=== PATIENT | female | born 2000 | race American Indian/Alaskan Native ===

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

== ENCOUNTER 2019-03-09 04:42 | Inpatient (IN) | payer MEDICAID ==
[2019-03-09] MEDS ORDERED: Sodium Chloride 0.9% 10 ML Syringe FLUSH PRN (04:45)
[2019-03-09] MEDS ORDERED: Sodium Chloride 0.9% 1,000 ML IV ONE (05:10)
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
[2019-03-09 05:20] LABS: ACETAMINOPHEN 230.2 ug/mL; ANION GAP 17.6; CHLORIDE,CL 109 mmol/L (101-111); SODIUM,NA 142 mmol/L (135-145)
[2019-03-09] MEDS ORDERED: Ondansetron 4 MG/2 ML SDV IVPUSH PRN (09:04)
[2019-03-09] MEDS ORDERED: Sodium Chloride 0.9% 1,000 ML IV SCH (09:15)
[2019-03-09] MEDS ORDERED: DEXTROSE 5% IV ONE ×6 (10:00→15:00)
[2019-03-09] MEDS ORDERED: WATER IV ONE ×6 (10:00→15:00)
[2019-03-09] MEDS ORDERED: ACETYLCYSTEINE IV ONE ×6 (10:00→15:00)
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
[2019-03-09] MEDS ORDERED: Metoclopramide 10 MG/2 ML SDV IVPUSH PRN (10:38)
[2019-03-09] MEDS ORDERED: Acetylcysteine 30 ML ONE (10:38)
[2019-03-09] MEDS: Nicotine 21 MG/24 Hr Patch TRDERM SCH (17:04)
[2019-03-09] MEDS: Heparin Sodium 5,000 Units/ML Vial SUBCUT SCH ×2 (17:06→21:55)
[2019-03-09 17:07] LABS: ACETAMINOPHEN 31.1 ug/mL
[2019-03-10] MEDS: Heparin Sodium 5,000 Units/ML Vial SUBCUT SCH ×2 (05:44→13:24)
[2019-03-10 06:53] LABS: ANION GAP 11.3; CHLORIDE,CL 106 mmol/L (101-111); SODIUM,NA 137 mmol/L (135-145)
[2019-03-10] MEDS ORDERED: Potassium Chloride 10 MEQ Tab.ER PO ONE (09:09)
[2019-03-10] MEDS: Nicotine 21 MG/24 Hr Patch TRDERM SCH (09:19)
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
[2019-03-10 15:35] VITALS: BP 134/91; PULSE 100
== END 2019-03-10 16:26 | disposition home or self-care (01) | DRG 917 ==
LOC: DL.ED 04:42 → UNDOADMIN 08:38 → DL.MS 08:38
PROVIDERS: ADMIT Hospitalist; ATTEND Hospitalist
DX: T39.1X4A Poisoning by 4-Aminophenol derivatives, undetermined, initial encounter (principal); F10.10 Alcohol abuse, uncomplicated; F19.10 Other psychoactive substance abuse, uncomplicated; Y90.9 Presence of alcohol in blood, level not specified; T39.1X1A Poisoning by 4-Aminophenol derivatives, accidental (unintentional), initial encounter; G92 Toxic encephalopathy; E87.2 Acidosis; F10.229 Alcohol dependence with intoxication, unspecified; F15.10 Other stimulant abuse, uncomplicated; F12.10 Cannabis abuse, uncomplicated; R74.8 Abnormal levels of other serum enzymes; Y90.6 Blood alcohol level of 120-199 mg/100 ml
CPT/HCPCS: 36415; 80053; 80320 ×2; 80329 ×3; 83605; 84703; 85025; 93005; J7030; 80048; 80076; 80305-QW; 85027; 85610; 96360; 99285-25; A9270-GY; G0480; J0132; J1644; J2405; J2765; J7060

== ENCOUNTER 2019-07-08 02:41 | Emergency (ER) | payer SELFPAY ==
[2019-07-08 03:21] VITALS: BP 120/56; PULSE 109
[2019-07-08] MEDS ORDERED: cefTRIAXone 250 MG Vial IM ONE (03:29)
[2019-07-08] MEDS ORDERED: Azithromycin 250 MG Tab PO ONE (03:30)
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
[2019-07-08] MEDS ORDERED: Lidocaine 1% 30 ML SDV INJECT ONE (03:42)
[2019-07-08 04:35] LABS: ANION GAP 14.6 mEq/L (7-13); CHLORIDE,CL 110 mmol/L (98-107); SODIUM,NA 148 mmol/L (136-145)
[2019-07-09 13:47] LABS: C.TRACHOMATIS BY TMA Positive (Negative); N.GONORRHOEAE BY TMA Negative (Negative)
== END 2019-07-08 04:16 | disposition home or self-care (01) ==
LOC: DL.ED 02:41
DX: T76.21XA Adult sexual abuse, suspected, initial encounter (principal); S80.01XA Contusion of right knee, initial encounter; S80.02XA Contusion of left knee, initial encounter; S80.811A Abrasion, right lower leg, initial encounter; F10.129 Alcohol abuse with intoxication, unspecified; Y90.6 Blood alcohol level of 120-199 mg/100 ml
CPT/HCPCS: 36415; 80053; 80305; 80307; 81001; 85025; 87491; 87591; 96372; 99283; A9270; J0696; J2001

== ENCOUNTER 2019-09-01 18:47 | Emergency (ER) | payer SELFPAY ==
[2019-09-01] MEDS ORDERED: Bacitracin Oint 1 GM U/D Packet TOP ONE (19:14)
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
[2019-09-01 19:31] VITALS: BP 119/82; PULSE 95
== END 2019-09-01 19:20 | disposition home or self-care (01) ==
LOC: DL.ED 18:47
DX: S61.411A Laceration without foreign body of right hand, initial encounter (principal); Y08.89XA Assault by other specified means, initial encounter
CPT/HCPCS: 99283

== ENCOUNTER 2020-08-30 15:09 | Emergency (ER) | payer MEDICAID ==
[2020-08-30 15:33] VITALS: BP 116/67; PULSE 94
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
--- NOTE | 2020-08-30 17:12 | CR ---
PROCEDURE INFORMATION: Exam: XR Left Foot Exam date and time: 08/30/2020 4:45 PM Age: 20 years old Clinical indication: Other: Bruising and pain to distal foot TECHNIQUE: Imaging protocol: XR Left foot. Views: 3 or more views. COMPARISON: CR Ankle Min 3V Lt 08/30/2020 3:44 PM FINDINGS: Bones/joints: Normal. Soft tissues: Normal. IMPRESSION: No acute findings.
== END 2020-08-30 17:03 | disposition home or self-care (01) ==
LOC: DL.ED 15:09
DX: S92.325A Nondisplaced fracture of second metatarsal bone, left foot, initial encounter for closed fracture (principal); S92.345A Nondisplaced fracture of fourth metatarsal bone, left foot, initial encounter for closed fracture; R60.0 Localized edema; Z77.22 Contact with and (suspected) exposure to environmental tobacco smoke (acute) (chronic); X50.1XXA Overexertion from prolonged static or awkward postures, initial encounter
CPT/HCPCS: 73610-LT; 73630-LT; 99283-25; 99284

== ENCOUNTER 2020-10-06 11:49 | Emergency (ER) | payer MEDICAID ==
[2020-10-06 12:22] VITALS: BP 91/69; PULSE 81
== END 2020-10-06 14:26 | disposition left against medical advice (07) ==
LOC: DL.ED 11:49
DX: Z53.21 Procedure and treatment not carried out due to patient leaving prior to being seen by health care provider (principal)

== ENCOUNTER 2021-06-12 00:09 | Emergency (ER) | payer MEDICAID ==
[2021-06-12 00:41] LABS: AMPHETAMINES,URINE NEGATIVE (NEGATIVE); BARBITURATES,URINE NEGATIVE (NEGATIVE); BENZODIAZEPINE,URINE NEGATIVE (NEGATIVE); MDMA (ECSTASY), URINE NEGATIVE (NEGATIVE); METHADONE,URINE NEGATIVE (NEGATIVE); METHAMPHETAMINES,URINE NEGATIVE (NEGATIVE); OPIATES,URINE NEGATIVE (NEGATIVE); OXYCODONE,URINE NEGATIVE (NEGATIVE); PHENCYCLIDINE,URINE NEGATIVE (NEGATIVE); TCA,URINE NEGATIVE (NEGATIVE)
[2021-06-12 00:45] VITALS: BP 120/75; PULSE 95
[2021-06-12 01:00] LABS: ANION GAP 16.3 mEq/L (7-13); CHLORIDE,CL 102 mmol/L (98-107); SODIUM,NA 138 mmol/L (136-145)
== END 2021-06-12 01:34 ==
LOC: DL.ED 00:09
DX: F10.129 Alcohol abuse with intoxication, unspecified (principal); Y90.8 Blood alcohol level of 240 mg/100 ml or more
CPT/HCPCS: 36415; 80053; 80305-QW; 80307; 85025; 99282; 99283

== ENCOUNTER 2021-12-02 18:53 | Emergency (ER) | payer MEDICAID ==
[2021-12-02 19:34] VITALS: BP 125/89; PULSE 92
== END 2021-12-02 19:43 | disposition left against medical advice (07) ==
LOC: DL.ED 18:53
DX: Z53.21 Procedure and treatment not carried out due to patient leaving prior to being seen by health care provider (principal)